=== PATIENT | female | born 2000 | race Caucasian/White ===

== ENCOUNTER 2023-06-04 21:10 | Emergency (ER) | payer BC, MEDICAID ==
[~2023-06-04] VITALS: Ht 157.5 cm; Wt 117.5 kg
[2023-06-04 21:40] VITALS: BP 120/74; PULSE 108; RESP 18; TEMP 99.9; O2SAT 99
[2023-06-04 22:27] LABS: FLU A ANTIGEN negative (NEGATIVE); FLU B ANTIGEN NEGATIVE (NEGATIVE)
[2023-06-05] MEDS: KETOROLAC 30 MG/ML VIAL IM ONE (02:47)
[2023-06-05] MEDS: ACETAMINOPHEN EXTRA STRENGTH 500 MG TAB PO ONE (02:49)
[2023-06-05] MEDS: ONDANSETRON 4 MG ODT PO ONE (02:50)
[2023-06-05 03:05] LABS: APPEARANCE,URINE CLEAR (CLEAR); BILIRUBIN,URINE NEGATIVE (NEGATIVE); BLOOD, URINE NEGATIVE (NEGATIVE); COLOR,URINE YELLOW (YELLOW); LEUKOCYTE ESTERASE ,URINE NEGATIVE (NEGATIVE); NITRITE, URINE NEGATIVE (NEGATIVE); PROTEIN,URINE NEGATIVE (NEGATIVE); UGLUCOSE NEGATIVE (NEGATIVE); UROBILINOGEN,URINE 0.2 EU/dL (0.2 - 1)
[2023-06-05 03:45] LABS: BASOPHILS # (AUTO) 0.1 K/uL (0.00-0.22); BASOPHILS % (AUTO) 0.8 % (0.0-2.0); EOSINOPHILS % (AUTO) 0.2 % (0.0-4.0); HEMATOCRIT 40.8 % (36-48); HEMOGLOBIN 13.7 g/dL (12.0-16.0); LYMPHOCYTES # (AUTO) 4.6 K/uL (2.5-16.5); LYMPHOCYTES % (AUTO) 47.6 % (20.5-51.1); MEAN CORPUSCULAR HEMOGLOBIN 28 pg (27-31); MEAN CORPUSCULAR HGB CONC 34 g/dL (33-37); MEAN CORPUSCULAR VOLUME 83.1 fL (80-94); MONOCYTES # (AUTO) 0.8 K/uL (0.8-1.0); NEUTROPHILS # (AUTO) 4.2 K/uL (1.8-7.7); NEUTROPHILS % (AUTO) 43.4 % (42.2-75.2); PLATELET COUNT (AUTO) 244 K/uL (140-450); RED BLOOD CELL COUNT(AUTO) 4.91 MIL/uL (4.20-5.40); RED CELL DISTRIBUTION WIDTH 14.7 % (11.6-13.7); WHITE BLOOD COUNT (AUTO) 9.6 K/uL (4.5-11.0)
[2023-06-05 04:01] LABS: ALBUMIN 3.2 g/dL (3.4-5.0); ANION GAP 13.4 (8-16); CALCIUM 8.5 mg/dL (8.5-10.1); CARBON DIOXIDE 24.4 mmol/L (21-32); CREATININE 0.8 mg/dL (0.6-1.3); POTASSIUM 3.8 mmol/L (3.5-5.1); TOTAL BILIRUBIN 0.5 mg/dL (0.0-1.0); TOTAL PROTEIN, SERUM 8.6 g/dL (6.4-8.2)
[2023-06-05] MEDS ORDERED: AMOX1TAB8 PO (04:53)
[2023-06-05] MEDS ORDERED: ONDA-188 PO (04:53)
[2023-06-05] MEDS ORDERED: ACET-10509 PO (04:53)
[2023-06-05] MEDS ORDERED: IBUP-1842 PO (04:53)
== END 2023-06-05 05:00 | disposition home or self-care (01) ==
LOC: MED 21:10
DX: R50.9 Fever, unspecified (principal); R11.2 Nausea with vomiting, unspecified; R74.01 Elevation of levels of liver transaminase levels; R51.9 Headache, unspecified; Z20.822 Contact with and (suspected) exposure to COVID-19; M79.18 Myalgia, other site
CPT/HCPCS: 36415; 71045; 80053; 81002; 81003; 81025; 85025; 87426; 87804; 96372; 99283; J1885; Q0162